=== PATIENT | male | born 1945 | race Caucasian/White ===

== ENCOUNTER → 2016-06-18 | Day surgery (SDC) | payer MEDICARE, BC ==
[~2016-06-18] MED LIST: Lactated Ringers 1,000 ML IV SCH; Propofol 200 MG/20 ML SDV IV ONE
[2016-06-18 08:09] VITALS: BP 121/55
--- NOTE | 2016-06-18 08:56 | OR ---
DATE OF OPERATION: 06/18/2016 PREOPERATIVE DIAGNOSIS: SCREENING COLONOSCOPY. POSTOPERATIVE DIAGNOSIS: SCREENING COLONOSCOPY. SURGEON: Huey Salamanca MD PROCEDURE: FULL-LENGTH COLONOSCOPY. 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 COMPLICATIONS: None. SPECIMEN: None. FINDINGS: Normal full-length colonoscopy. RECOMMENDATIONS: Followup colonoscopy on an as-needed basis only. INDICATIONS: The patient was in to see his primary provider, Melissa Oneil for routine physical. She recommended a screening colonoscopy. It has been 10 years since his last. DESCRIPTION OF PROCEDURE: The patient was prepped and draped, placed in the left lateral decubitus position. A lubricated Olympus colonoscope was inserted and easily advanced to the cecum. Direct visualization of the ileocecal valve and the appendiceal orifice was accomplished. Bowel prep was excellent. Upon withdrawal of the scope throughout the entire length of the colon, I found no signs of any polyps, mass, ulceration, or bleeding sites. There were no vascular abnormalities or signs of colitis. The patient had no significant diverticular disease. The rectal vault was benign. Retroflexion of the scope in the rectum showed some perianal hemorrhoid disease, but otherwise benign. Air was then suctioned from the colon, and the scope was removed without complications. ANAYA/SHAE /[id number]
== END ==
LOC: CC.SDS 06:22
PROVIDERS: ATTEND Family Medicine
DX: Z12.11 Encounter for screening for malignant neoplasm of colon (principal); K64.8 Other hemorrhoids
CPT/HCPCS: G0121; J2704; J7120; 00810

== ENCOUNTER 2024-02-01 10:10 | Inpatient (IN) | payer MEDICARE, BC ==
[2024-02-01 10:36] LABS: BASOPHILS ABSOLUTE AUTO 0.03 10^3/uL (0.00-0.50); BASOPHILS PERCENT AUTO 0.2 % (0-1); EOSINOPHILS ABSOLUTE AUTO 0.01 10^3/uL (0.00-1.50); EOSINOPHILS PERCENT AUTO 0.1 % (0-6); HEMATOCRIT 38.8 % (42.0-52.0); HEMOGLOBIN 12.3 g/dL (14.0-18.0); IMMATURE GRAN ABSOLUTE AUTO 0.02 10^3/uL (0.00-0.49); IMMATURE GRAN PERCENT AUTO 0.1 % (0.0-4.9); LYMPHOCYTES PERCENT AUTO 10.1 % (24-44); MEAN CORPUSCULAR HEMOGLOBIN 29.6 pg (27.0-32.0); MEAN CORPUSCULAR HGB CONC 31.7 g/dL (32.0-36.0); MEAN CORPUSCULAR VOLUME 93.5 fL (83.0-97.0); MONOCYTES ABSOLUTE AUTO 1.73 10^3/uL (0.00-1.50); MONOCYTES PERCENT AUTO 9.7 % (0-10); NEUTROPHILS ABSOLUTE AUTO 14.24 x10^3/uL (1.80-8.00); NEUTROPHILS PERCENT AUTO 79.8 % (41-71); PLATELET COUNT,PLT 150 10^3/uL (150-400); RED BLOOD CELL COUNT 4.15 x10^6/uL (4.50-6.00); WHITE BLOOD CELL COUNT,WBC 17.8 10^3/uL (4.0-11.0)
[2024-02-01 10:48] LABS: ALBUMIN 3.2 g/dL (3.4-5.0); BILIRUBIN TOTAL 0.7 mg/dL (0.0-1.0); C-REACTIVE PROTEIN 1.36 mg/dL (<=0.50); CREATININE 1.4 mg/dL (0.7-1.3); EST CRCL DRUG DOSING (CG) 46.19 mL/min; POTASSIUM,K 4.2 mEq/L (3.5-5.0); PROTEIN TOTAL,TP 6.3 g/dL (6.4-8.2)
[2024-02-01] MEDS ORDERED: Ondansetron 4 MG Tab.DIS PO PRN (11:42)
[2024-02-01] MEDS ORDERED: Ondansetron 4 MG/2 ML SDV IV PRN (11:42)
[2024-02-01] MEDS: methylPREDNISolone Sodium Succinate 125 MG/2 ML SDV IVPUSH ONE (12:35)
[2024-02-01] MEDS: Sodium Chloride 0.9% 1,000 ML IV SCH (12:37)
[2024-02-01] MEDS: Enoxaparin 40 MG/0.4 ML Syringe SUBCUT SCH (16:23)
[2024-02-01] MEDS: Tamsulosin 0.4 MG Cap.ER PO SCH (19:39)
[2024-02-01] MEDS: methylPREDNISolone Sodium Succinate 125 MG/2 ML SDV IVPUSH SCH (19:41)
[2024-02-01] MEDS: Piperacillin/Tazobactam 4.5 GM in Sodium Chloride 0.9% 100 ML IV ONE (19:44)
[2024-02-01] MEDS: Albuterol/Ipratropium 3.0-0.5 MG/3 ML Neb Soln NEB PRN (19:54)
[2024-02-01] MEDS: Acetaminophen 325 MG Tab PO PRN (20:10)
[2024-02-01] MEDS: Nitroglycerin 0.4 MG Tab.SL SL PRN (20:53)
[2024-02-01 21:39] LABS: INR 1.04 (0.92-1.18); PROTHROMBIN TIME 10.9 SEC (9.3-11.3); PTT,PARTIAL THROMBOPLSTIN TIME 25.1 SEC (20.0-30.0)
[2024-02-01] MEDS: Heparin Sodium 5,000 Units/ML Vial IVPUSH ONE (22:15)
[2024-02-01] MEDS: Aspirin 81 MG Tab.Chew PO ONE (22:16)
[2024-02-01] MEDS: Metoprolol Tartrate 50 MG Tab PO ONE (22:18)
[2024-02-01] MEDS: Heparin Sodium/0.45% NaCl 500 ML IV SCH (22:22)
[2024-02-01 23:56] VITALS: BP 132/58; PULSE 74
[2024-02-02] MEDS ORDERED: Piperacillin/Tazobactam 4.5 GM in Sodium Chloride 0.9% 100 ML IV SCH
[2024-02-02] MEDS ORDERED: Finasteride 5 MG Tab PO SCH (08:00)
[2024-02-02] MEDS ORDERED: VIT B6 PO SCH ×2 (08:00)
[2024-02-02] MEDS ORDERED: Metoprolol Tartrate 50 MG Tab PO SCH (08:00)
[2024-02-02] MEDS ORDERED: FOLIC AC PO SCH ×2 (08:00)
[2024-02-02] MEDS ORDERED: CYANOCOBALAMIN PO SCH ×2 (08:00)
[2024-02-02] MEDS ORDERED: Aspirin 81 MG Tab.EC PO SCH (08:00)
[2024-02-02] MEDS ORDERED: [UNRECOGNIZED DRUG - OTHER] PO SCH (08:00)
[2024-02-02] MEDS ORDERED: Lactobacillus Rhamnosus GG (Probiotic) Cap PO SCH (08:00)
[2024-02-02] MEDS ORDERED: Beta-Carotene (Vitamin A) w/Vitamin C & E plus Minerals Tab PO SCH (08:00)
[2024-02-02] MEDS ORDERED: Ascorbic Acid 500 MG Tab PO SCH (08:00)
== END 2024-02-01 23:45 | DRG 193 ==
LOC: CC.ED 10:10 → CC.MS 11:15 → CC.ED 11:15 → UNDOADMIN 11:35 → CC.MS 11:35
PROVIDERS: ADMIT Physician Assistant Medical; ATTEND Physician Assistant Medical
DX: J18.9 Pneumonia, unspecified organism (principal); I21.4 Non-ST elevation (NSTEMI) myocardial infarction; J44.0 Chronic obstructive pulmonary disease with (acute) lower respiratory infection; N17.9 Acute kidney failure, unspecified; J44.9 Chronic obstructive pulmonary disease, unspecified; N40.0 Benign prostatic hyperplasia without lower urinary tract symptoms; D64.9 Anemia, unspecified; M19.90 Unspecified osteoarthritis, unspecified site; F41.9 Anxiety disorder, unspecified; I25.10 Atherosclerotic heart disease of native coronary artery without angina pectoris; I10 Essential (primary) hypertension; Z95.5 Presence of coronary angioplasty implant and graft; Z98.49 Cataract extraction status, unspecified eye; Z79.82 Long term (current) use of aspirin; Z79.52 Long term (current) use of systemic steroids; Z98.890 Other specified postprocedural states; Z91.041 Radiographic dye allergy status; Z79.899 Other long term (current) drug therapy
CPT/HCPCS: 36415; 70450; 71045; 80053; 83735; 84484; 85025; 85610; 85651; 85730; 86140; 87428-QW; 94640; 97161-GP; 99285; A9270-GY; J1644; J1650; J2543; J2919; J3490; J7030; J7620-GY

== ENCOUNTER 2024-04-08 10:05 | Inpatient (IN) | payer MEDICARE, BC ==
[2024-04-08] MEDS: Albuterol/Ipratropium 3.0-0.5 MG/3 ML Neb Soln NEB ONE (10:08)
[2024-04-08 10:27] LABS: BASOPHILS ABSOLUTE AUTO 0.02 10^3/uL (0.00-0.50); BASOPHILS PERCENT AUTO 0.2 % (0-1); EOSINOPHILS ABSOLUTE AUTO 0.09 10^3/uL (0.00-1.50); EOSINOPHILS PERCENT AUTO 0.9 % (0-6); HEMATOCRIT 36.3 % (42.0-52.0); HEMOGLOBIN 11.5 g/dL (14.0-18.0); IMMATURE GRAN ABSOLUTE AUTO 0.01 10^3/uL (0.00-0.49); IMMATURE GRAN PERCENT AUTO 0.1 % (0.0-4.9); LYMPHOCYTES ABSOLUTE AUTO 1.91 10^3/uL (0.60-5.00); LYMPHOCYTES PERCENT AUTO 19.9 % (24-44); MEAN CORPUSCULAR HEMOGLOBIN 29.6 pg (27.0-32.0); MEAN CORPUSCULAR HGB CONC 31.7 g/dL (32.0-36.0); MEAN CORPUSCULAR VOLUME 93.3 fL (83.0-97.0); MONOCYTES ABSOLUTE AUTO 0.92 10^3/uL (0.00-1.50); MONOCYTES PERCENT AUTO 9.6 % (0-10); NEUTROPHILS ABSOLUTE AUTO 6.67 x10^3/uL (1.80-8.00); NEUTROPHILS PERCENT AUTO 69.3 % (41-71); PLATELET COUNT,PLT 103 10^3/uL (150-400); RED BLOOD CELL COUNT 3.89 x10^6/uL (4.50-6.00); WHITE BLOOD CELL COUNT,WBC 9.6 10^3/uL (4.0-11.0)
[2024-04-08] MEDS: Acetaminophen 325 MG Tab PO ONE (10:29)
[2024-04-08 10:57] LABS: ALBUMIN 3.2 g/dL (3.4-5.0); BILIRUBIN TOTAL 0.5 mg/dL (0.0-1.0); CALCIUM 8.7 mg/dL (8.4-10.1); CREATININE 1.2 mg/dL (0.7-1.3); EST CRCL DRUG DOSING (CG) 50.69 mL/min; MAGNESIUM 1.5 mg/dL (1.8-2.4); PROTEIN TOTAL,TP 6.2 g/dL (6.4-8.2)
[2024-04-08 11:05] LABS: INR 0.99 (0.92-1.18); PROTHROMBIN TIME 10.4 SEC (9.3-11.3); PTT,PARTIAL THROMBOPLSTIN TIME 24.7 SEC (20.0-30.0)
[2024-04-08] MEDS: Magnesium Sulfate/Water Premix 2 GM in Premix Bag 1 BAG IV ONE (11:22)
[2024-04-08] MEDS: Azithromycin 250 MG Tab PO ONE (11:55)
[2024-04-08] MEDS: methylPREDNISolone Sodium Succinate 40 MG/1 ML SDV IVPUSH SCH (11:56)
[2024-04-08] MEDS: cefTRIAXone 1 GM Vial IVPUSH SCH (11:56)
[2024-04-08] MEDS ORDERED: Ondansetron 4 MG Tab.DIS PO PRN (12:37)
[2024-04-08] MEDS ORDERED: Polyethylene Glycol 3350 Powder 17 GM Packet PO PRN (12:37)
[2024-04-08] MEDS ORDERED: Ondansetron 4 MG/2 ML SDV IV PRN (12:37)
[2024-04-08] MEDS ORDERED: Albuterol 0.083% 2.5 MG/3 ML Neb Soln NEB PRN (12:37)
[2024-04-08] MEDS ORDERED: Docusate Sodium 100 MG Cap PO PRN (12:37)
[2024-04-08] MEDS ORDERED: Acetaminophen 325 MG Tab PO PRN (12:37)
[2024-04-08] MEDS ORDERED: Nitroglycerin 0.4 MG Tab.SL SL PRN (12:37)
[2024-04-08] MEDS ORDERED: Morphine 2 MG/ML SYRINGE IVPUSH PRN (12:37)
[2024-04-08] MEDS: Albuterol/Ipratropium 3.0-0.5 MG/3 ML Neb Soln NEB SCH (13:51)
[2024-04-08] MEDS: Oseltamivir 75 MG Cap PO SCH (15:11)
[2024-04-08] MEDS: Furosemide 20 MG Tab PO SCH (15:11)
[2024-04-08] MEDS: Metoprolol Tartrate 25 MG Tab PO SCH (19:31)
[2024-04-08] MEDS: atorvaSTATin 20 MG Tab PO SCH (19:31)
[2024-04-08] MEDS: Enoxaparin 40 MG/0.4 ML Syringe SUBCUT SCH (19:32)
[2024-04-08] MEDS: Formoterol/Mometasone 200-5 MCG 8.8 GM Inhaler IH SCH (21:03)
[2024-04-09 07:03] LABS: BASOPHILS ABSOLUTE AUTO 0.01 10^3/uL (0.00-0.50); BASOPHILS PERCENT AUTO 0.1 % (0-1); EOSINOPHILS ABSOLUTE AUTO 0.01 10^3/uL (0.00-1.50); EOSINOPHILS PERCENT AUTO 0.1 % (0-6); HEMATOCRIT 36.2 % (42.0-52.0); HEMOGLOBIN 11.5 g/dL (14.0-18.0); IMMATURE GRAN ABSOLUTE AUTO 0.02 10^3/uL (0.00-0.49); IMMATURE GRAN PERCENT AUTO 0.2 % (0.0-4.9); LYMPHOCYTES ABSOLUTE AUTO 1.84 10^3/uL (0.60-5.00); LYMPHOCYTES PERCENT AUTO 16.9 % (24-44); MEAN CORPUSCULAR HEMOGLOBIN 29.3 pg (27.0-32.0); MEAN CORPUSCULAR HGB CONC 31.8 g/dL (32.0-36.0); MEAN CORPUSCULAR VOLUME 92.1 fL (83.0-97.0); MONOCYTES ABSOLUTE AUTO 0.62 10^3/uL (0.00-1.50); MONOCYTES PERCENT AUTO 5.7 % (0-10); NEUTROPHILS ABSOLUTE AUTO 8.38 x10^3/uL (1.80-8.00); PLATELET COUNT,PLT 135 10^3/uL (150-400); RED BLOOD CELL COUNT 3.93 x10^6/uL (4.50-6.00); WHITE BLOOD CELL COUNT,WBC 10.9 10^3/uL (4.0-11.0)
[2024-04-09 07:09] LABS: CALCIUM 8.7 mg/dL (8.4-10.1); CREATININE 1.1 mg/dL (0.7-1.3); EST CRCL DRUG DOSING (CG) 55.3 mL/min; MAGNESIUM 1.8 mg/dL (1.8-2.4); POTASSIUM,K 4.1 mEq/L (3.5-5.0)
[2024-04-09] MEDS: Aspirin 81 MG Tab.EC PO SCH (07:30)
[2024-04-09] MEDS: Finasteride 5 MG Tab PO SCH (07:31)
[2024-04-09] MEDS: Beta-Carotene (Vitamin A) w/Vitamin C & E plus Minerals Tab PO SCH (07:31)
[2024-04-09] MEDS: Ascorbic Acid 500 MG Tab PO SCH (07:32)
[2024-04-09] MEDS: Cholecalciferol (Vitamin D3) 25 MCG Tab PO SCH (07:32)
[2024-04-09] MEDS: Calcium Carbonate 500 MG Tab.Chew PO SCH (07:32)
[2024-04-09] MEDS: Azithromycin 250 MG Tab PO SCH (07:32)
[2024-04-09] MEDS ORDERED: CYANOCOBALAMIN PO SCH (08:00)
[2024-04-09] MEDS ORDERED: [UNRECOGNIZED DRUG - OTHER] PO SCH (08:00)
[2024-04-09] MEDS ORDERED: FOLIC AC PO SCH (08:00)
[2024-04-09] MEDS ORDERED: VIT B6 PO SCH (08:00)
[2024-04-09] MEDS: CYANOCOBALAMIN PO SCH (10:44)
[2024-04-09] MEDS: FOLIC AC PO SCH (10:44)
[2024-04-09] MEDS: VIT B6 PO SCH (10:44)
[2024-04-10 07:43] LABS: BASOPHILS ABSOLUTE AUTO 0.01 10^3/uL (0.00-0.50); BASOPHILS PERCENT AUTO 0.1 % (0-1); EOSINOPHILS ABSOLUTE AUTO 0.01 10^3/uL (0.00-1.50); EOSINOPHILS PERCENT AUTO 0.1 % (0-6); HEMOGLOBIN 11.7 g/dL (14.0-18.0); IMMATURE GRAN ABSOLUTE AUTO 0.03 10^3/uL (0.00-0.49); IMMATURE GRAN PERCENT AUTO 0.2 % (0.0-4.9); LYMPHOCYTES ABSOLUTE AUTO 1.98 10^3/uL (0.60-5.00); LYMPHOCYTES PERCENT AUTO 15.2 % (24-44); MEAN CORPUSCULAR HEMOGLOBIN 29.5 pg (27.0-32.0); MEAN CORPUSCULAR HGB CONC 31.6 g/dL (32.0-36.0); MEAN CORPUSCULAR VOLUME 93.2 fL (83.0-97.0); MONOCYTES ABSOLUTE AUTO 1.22 10^3/uL (0.00-1.50); MONOCYTES PERCENT AUTO 9.3 % (0-10); NEUTROPHILS PERCENT AUTO 75.1 % (41-71); PLATELET COUNT,PLT 137 10^3/uL (150-400); RED BLOOD CELL COUNT 3.97 x10^6/uL (4.50-6.00); WHITE BLOOD CELL COUNT,WBC 13.1 10^3/uL (4.0-11.0)
[2024-04-10 08:50] LABS: CALCIUM 8.6 mg/dL (8.4-10.1); CREATININE 1.1 mg/dL (0.7-1.3); EST CRCL DRUG DOSING (CG) 55.3 mL/min; MAGNESIUM 1.7 mg/dL (1.8-2.4); POTASSIUM,K 4.2 mEq/L (3.5-5.0)
[2024-04-10 13:53] VITALS: BP 129/62; PULSE 82
== END 2024-04-10 12:45 | disposition home or self-care (01) | DRG 641 ==
LOC: CC.ED 10:05 → CC.MS 11:29 → UNDOADMIN 11:40
PROVIDERS: ADMIT Nurse Practitioner; ATTEND Nurse Practitioner
DX: E83.42 Hypomagnesemia (principal); J44.1 Chronic obstructive pulmonary disease with (acute) exacerbation; I25.10 Atherosclerotic heart disease of native coronary artery without angina pectoris; I10 Essential (primary) hypertension; N40.0 Benign prostatic hyperplasia without lower urinary tract symptoms; M19.90 Unspecified osteoarthritis, unspecified site; H26.9 Unspecified cataract; J30.9 Allergic rhinitis, unspecified; F41.9 Anxiety disorder, unspecified; J10.1 Influenza due to other identified influenza virus with other respiratory manifestations; T38.0X5A Adverse effect of glucocorticoids and synthetic analogues, initial encounter; Z98.49 Cataract extraction status, unspecified eye; Z95.5 Presence of coronary angioplasty implant and graft; Z98.890 Other specified postprocedural states; Z87.891 Personal history of nicotine dependence; Z91.041 Radiographic dye allergy status; Z79.82 Long term (current) use of aspirin; Z79.51 Long term (current) use of inhaled steroids; Z79.02 Long term (current) use of antithrombotics/antiplatelets; Z79.899 Other long term (current) drug therapy
CPT/HCPCS: 36415; 71046; 80053; 83690; 83735; 83880; 84484; 85025; 85610; 85730; 93005; 94640; 99285; A9270; J3475; 80048; 87428-QW; 93010; 97161-GP; 99223; 99233; 99238; J0696; J1650; J2919; J7620-GY

== ENCOUNTER 2024-05-27 11:15 | Emergency (ER) | payer MEDICARE, BC ==
[2024-05-27 11:41] LABS: BASOPHILS ABSOLUTE AUTO 0.04 10^3/uL (0.00-0.50); BASOPHILS PERCENT AUTO 0.4 % (0-1); EOSINOPHILS ABSOLUTE AUTO 0.12 10^3/uL (0.00-1.50); EOSINOPHILS PERCENT AUTO 1.2 % (0-6); HEMATOCRIT 34.9 % (42.0-52.0); HEMOGLOBIN 11.4 g/dL (14.0-18.0); IMMATURE GRAN ABSOLUTE AUTO 0.02 10^3/uL (0.00-0.49); IMMATURE GRAN PERCENT AUTO 0.2 % (0.0-4.9); LYMPHOCYTES ABSOLUTE AUTO 2.33 10^3/uL (0.60-5.00); LYMPHOCYTES PERCENT AUTO 22.6 % (24-44); MEAN CORPUSCULAR HEMOGLOBIN 30.2 pg (27.0-32.0); MEAN CORPUSCULAR HGB CONC 32.7 g/dL (32.0-36.0); MEAN CORPUSCULAR VOLUME 92.6 fL (83.0-97.0); MONOCYTES PERCENT AUTO 11.7 % (0-10); NEUTROPHILS ABSOLUTE AUTO 6.58 x10^3/uL (1.80-8.00); NEUTROPHILS PERCENT AUTO 63.9 % (41-71); PLATELET COUNT,PLT 112 10^3/uL (150-400); RED BLOOD CELL COUNT 3.77 x10^6/uL (4.50-6.00); WHITE BLOOD CELL COUNT,WBC 10.3 10^3/uL (4.0-11.0)
[2024-05-27 11:57] LABS: ALANINE AMINOTRANSFERASE,ALT 33 U/L (12-78); ALKALINE PHOSPHATASE 80 U/L (46-116); ASPARTATE AMNIOTRANSFERASE,AST 18 U/L (15-37); BILIRUBIN TOTAL 0.8 mg/dL (0.0-1.0); BLOOD UREA NITROGEN,BUN 21 mg/dL (7-18); CALCIUM 9.1 mg/dL (8.4-10.1); CARBON DIOXIDE,CO2 30 mmol/L (21-32); CHLORIDE,CL 105 mEq/L (98-106); CREATININE 1.1 mg/dL (0.7-1.3); GLUCOSE RANDOM 84 mg/dL (75-99); POTASSIUM,K 4.1 mEq/L (3.5-5.0); SODIUM,NA 143 mEq/L (136-145)
[2024-05-27 11:58] LABS: C-REACTIVE PROTEIN < 0.50 mg/dL (<=0.50); ESTIMATED GFR 68 mL/min (>=60)
[2024-05-27 15:44] VITALS: BP 112/62; PULSE 88
== END 2024-05-27 12:25 | disposition home or self-care (01) ==
LOC: CC.ED 11:15
DX: R42 Dizziness and giddiness (principal); I10 Essential (primary) hypertension; I25.10 Atherosclerotic heart disease of native coronary artery without angina pectoris; J44.9 Chronic obstructive pulmonary disease, unspecified; M19.90 Unspecified osteoarthritis, unspecified site; Z91.041 Radiographic dye allergy status; Z79.82 Long term (current) use of aspirin; Z79.899 Other long term (current) drug therapy
CPT/HCPCS: 36415; 71046; 80053; 84484; 85025; 86140; 93005; 99284

== ENCOUNTER 2024-06-29 20:08 | Inpatient (IN) | payer MEDICARE, BC ==
[2024-06-29 20:27] LABS: BASOPHILS ABSOLUTE AUTO 0.04 10^3/uL (0.00-0.50); BASOPHILS PERCENT AUTO 0.5 % (0-1); EOSINOPHILS ABSOLUTE AUTO 0.14 10^3/uL (0.00-1.50); EOSINOPHILS PERCENT AUTO 1.7 % (0-6); HEMATOCRIT 31.8 % (42.0-52.0); HEMOGLOBIN 10.4 g/dL (14.0-18.0); IMMATURE GRAN ABSOLUTE AUTO 0.02 10^3/uL (0.00-0.49); IMMATURE GRAN PERCENT AUTO 0.2 % (0.0-4.9); LYMPHOCYTES ABSOLUTE AUTO 1.68 10^3/uL (0.60-5.00); LYMPHOCYTES PERCENT AUTO 20.4 % (24-44); MEAN CORPUSCULAR HEMOGLOBIN 30.1 pg (27.0-32.0); MEAN CORPUSCULAR HGB CONC 32.7 g/dL (32.0-36.0); MEAN CORPUSCULAR VOLUME 92.2 fL (83.0-97.0); MONOCYTES ABSOLUTE AUTO 0.96 10^3/uL (0.00-1.50); MONOCYTES PERCENT AUTO 11.7 % (0-10); NEUTROPHILS ABSOLUTE AUTO 5.39 x10^3/uL (1.80-8.00); NEUTROPHILS PERCENT AUTO 65.5 % (41-71); PLATELET COUNT,PLT 151 10^3/uL (150-400); RED BLOOD CELL COUNT 3.45 x10^6/uL (4.50-6.00); WHITE BLOOD CELL COUNT,WBC 8.2 10^3/uL (4.0-11.0)
[2024-06-29 20:46] LABS: ALANINE AMINOTRANSFERASE,ALT 30 U/L (12-78); ALBUMIN 2.9 g/dL (3.4-5.0); ALKALINE PHOSPHATASE 81 U/L (46-116); ASPARTATE AMNIOTRANSFERASE,AST 21 U/L (15-37); BILIRUBIN TOTAL 0.8 mg/dL (0.0-1.0); BLOOD UREA NITROGEN,BUN 23 mg/dL (7-18); CALCIUM 8.9 mg/dL (8.4-10.1); CARBON DIOXIDE,CO2 25 mmol/L (21-32); CHLORIDE,CL 102 mEq/L (98-106); CREATININE 1.4 mg/dL (0.7-1.3); GLUCOSE RANDOM 111 mg/dL (75-99); MAGNESIUM 1.8 mg/dL (1.8-2.4); POTASSIUM,K 4.3 mEq/L (3.5-5.0); PRO B-TYPE NATRIUR PEPT,BNPPRO 4583 pg/mL (0-1000); PROTEIN TOTAL,TP 6.7 g/dL (6.4-8.2); SODIUM,NA 138 mEq/L (136-145)
[2024-06-29 20:47] LABS: ESTIMATED GFR 51 mL/min (>=60)
[2024-06-29 20:58] LABS: APPEARANCE,URINE CLEAR (CLEAR); BILIRUBIN,URINE SMALL (NEGATIVE); COLOR,URINE DARK YELLOW (YELLOW); GLUCOSE,URINE NEGATIVE (NEGATIVE); KETONES,URINE TRACE mg/dL (NEGATIVE); LEUKOCYTE ESTERASE,URINE NEGATIVE (NEGATIVE); NITRITE,URINE NEGATIVE (NEGATIVE); OCCULT BLOOD,URINE NEGATIVE (NEGATIVE); PROTEIN,URINE 100 mg/dL (NEGATIVE); UROBILINOGEN,URINE 0.2 EU/dL (0.2-1.0)
[2024-06-29 21:02] LABS: RBC,URINE NOT SEEN /HPF (0-5); WBC,URINE NOT SEEN /HPF (0-5)
[2024-06-29 21:03] LABS: BACTERIA,URINE RARE /HPF (NOT SEEN); EPITHELIAL CELLS,URINE RARE /HPF (NOT SEEN); MUCUS,URINE FEW /HPF (NOT SEEN)
[2024-06-29] MEDS ORDERED: Polyethylene Glycol 3350 Powder 17 GM Packet PO PRN (23:20)
[2024-06-29] MEDS ORDERED: Ondansetron 4 MG Tab.DIS PO PRN (23:20)
[2024-06-29] MEDS ORDERED: Docusate Sodium 100 MG Cap PO PRN (23:20)
[2024-06-29] MEDS: Acetaminophen 325 MG Tab PO PRN (23:30)
[2024-06-29] MEDS: Furosemide 20 MG/2 ML VIAL IVPUSH SCH (23:33)
[2024-06-29] MEDS ORDERED: Albuterol 6.7 GM Inhaler INH PRN (23:48)
[2024-06-30 07:17] LABS: CALCIUM 8.6 mg/dL (8.4-10.1); CREATININE 1.3 mg/dL (0.7-1.3); EST CRCL DRUG DOSING (CG) 45.32 mL/min; MAGNESIUM 1.9 mg/dL (1.8-2.4); POTASSIUM,K 3.5 mEq/L (3.5-5.0)
[2024-06-30 07:52] LABS: BASOPHILS ABSOLUTE AUTO 0.03 10^3/uL (0.00-0.50); BASOPHILS PERCENT AUTO 0.4 % (0-1); EOSINOPHILS ABSOLUTE AUTO 0.22 10^3/uL (0.00-1.50); HEMATOCRIT 30.5 % (42.0-52.0); HEMOGLOBIN 10.1 g/dL (14.0-18.0); IMMATURE GRAN ABSOLUTE AUTO 0.02 10^3/uL (0.00-0.49); IMMATURE GRAN PERCENT AUTO 0.3 % (0.0-4.9); LYMPHOCYTES ABSOLUTE AUTO 2.09 10^3/uL (0.60-5.00); LYMPHOCYTES PERCENT AUTO 28.1 % (24-44); MEAN CORPUSCULAR HEMOGLOBIN 30.8 pg (27.0-32.0); MEAN CORPUSCULAR HGB CONC 33.1 g/dL (32.0-36.0); MONOCYTES ABSOLUTE AUTO 0.94 10^3/uL (0.00-1.50); MONOCYTES PERCENT AUTO 12.6 % (0-10); NEUTROPHILS ABSOLUTE AUTO 4.15 x10^3/uL (1.80-8.00); NEUTROPHILS PERCENT AUTO 55.6 % (41-71); PLATELET COUNT,PLT 152 10^3/uL (150-400); RED BLOOD CELL COUNT 3.28 x10^6/uL (4.50-6.00); WHITE BLOOD CELL COUNT,WBC 7.5 10^3/uL (4.0-11.0)
[2024-06-30] MEDS: Beta-Carotene (Vitamin A) w/Vitamin C & E plus Minerals Tab PO SCH (07:57)
[2024-06-30] MEDS: Finasteride 5 MG Tab PO SCH (07:58)
[2024-06-30] MEDS: Cholecalciferol (Vitamin D3) 25 MCG Tab PO SCH (07:58)
[2024-06-30] MEDS: Aspirin 81 MG Tab.EC PO SCH (07:58)
[2024-06-30] MEDS: Metoprolol Tartrate 25 MG Tab PO SCH (07:58)
[2024-06-30] MEDS: Calcium Carbonate 500 MG Tab.Chew PO SCH (07:58)
[2024-06-30] MEDS: Potassium Chloride 10 MEQ Tab.ER PO SCH (07:58)
[2024-06-30] MEDS: Tamsulosin 0.4 MG Cap.ER PO SCH (07:58)
[2024-06-30] MEDS: Ascorbic Acid 500 MG Tab PO SCH (07:58)
[2024-06-30] MEDS ORDERED: Non-Formulary Medication 1 Each (Lutein/Minerals/Vit A,C & E [Ocuvite] 1 EACH Tablet) PO SCH (08:00)
[2024-06-30] MEDS ORDERED: Formoterol/Mometasone 200-5 MCG 8.8 GM Inhaler IH SCH (08:00)
[2024-06-30] MEDS: Ticagrelor 90 MG Tab PO SCH (08:44)
[2024-06-30] MEDS: Vitamin B Complex Cap PO SCH (10:59)
[2024-06-30] MEDS ORDERED: Enoxaparin 40 MG/0.4 ML Syringe SUBCUT SCH (11:00)
[2024-06-30] MEDS: VIT B6 PO SCH (11:12)
[2024-06-30] MEDS: FOLIC AC PO SCH (11:12)
[2024-06-30] MEDS: CYANOCOBALAMIN PO SCH (11:12)
[2024-06-30] MEDS: [UNRECOGNIZED DRUG - OTHER] PO SCH (11:12)
[2024-06-30] MEDS ORDERED: Albuterol 6.7 GM Inhaler INH PRN (11:27)
[2024-06-30] MEDS: FLUTICASONE PROPION INH SCH (11:48)
[2024-06-30] MEDS: SALMETEROL INH SCH (11:48)
[2024-06-30 12:07] LABS: CORONAVIRUS COVID-19 NAA NEGATIVE (NEGATIVE); INFLUENZA A NAA NEGATIVE (NEGATIVE); INFLUENZA B NAA NEGATIVE (NEGATIVE)
[2024-06-30] MEDS: Azithromycin 250 MG Tab PO ONE (12:23)
[2024-06-30] MEDS: cefTRIAXone 1 GM Vial IVPUSH SCH (12:35)
[2024-06-30] MEDS: Enoxaparin 40 MG/0.4 ML Syringe SUBCUT SCH (19:40)
[2024-06-30] MEDS: atorvaSTATin 20 MG Tab PO SCH (19:40)
[2024-07-01 07:13] LABS: C-REACTIVE PROTEIN 11.18 mg/dL (<=0.50); CALCIUM 8.3 mg/dL (8.4-10.1); CREATININE 1.2 mg/dL (0.7-1.3); EST CRCL DRUG DOSING (CG) 49.1 mL/min; MAGNESIUM 1.7 mg/dL (1.8-2.4); POTASSIUM,K 3.7 mEq/L (3.5-5.0)
[2024-07-01 07:22] LABS: BASOPHILS ABSOLUTE AUTO 0.04 10^3/uL (0.00-0.50); BASOPHILS PERCENT AUTO 0.6 % (0-1); EOSINOPHILS ABSOLUTE AUTO 0.22 10^3/uL (0.00-1.50); EOSINOPHILS PERCENT AUTO 3.1 % (0-6); HEMATOCRIT 28.8 % (42.0-52.0); HEMOGLOBIN 9.6 g/dL (14.0-18.0); IMMATURE GRAN ABSOLUTE AUTO 0.02 10^3/uL (0.00-0.49); IMMATURE GRAN PERCENT AUTO 0.3 % (0.0-4.9); MEAN CORPUSCULAR HEMOGLOBIN 30.5 pg (27.0-32.0); MEAN CORPUSCULAR HGB CONC 33.3 g/dL (32.0-36.0); MEAN CORPUSCULAR VOLUME 91.4 fL (83.0-97.0); MONOCYTES ABSOLUTE AUTO 0.78 10^3/uL (0.00-1.50); NEUTROPHILS ABSOLUTE AUTO 4.81 x10^3/uL (1.80-8.00); PLATELET COUNT,PLT 165 10^3/uL (150-400); RED BLOOD CELL COUNT 3.15 x10^6/uL (4.50-6.00); WHITE BLOOD CELL COUNT,WBC 7.1 10^3/uL (4.0-11.0)
[2024-07-01] MEDS: Azithromycin 250 MG Tab PO SCH (07:30)
[2024-07-02 10:15] LABS: BASOPHILS ABSOLUTE AUTO 0.03 10^3/uL (0.00-0.50); BASOPHILS PERCENT AUTO 0.3 % (0-1); EOSINOPHILS ABSOLUTE AUTO 0.18 10^3/uL (0.00-1.50); HEMATOCRIT 31.3 % (42.0-52.0); HEMOGLOBIN 10.2 g/dL (14.0-18.0); IMMATURE GRAN ABSOLUTE AUTO 0.02 10^3/uL (0.00-0.49); IMMATURE GRAN PERCENT AUTO 0.2 % (0.0-4.9); LYMPHOCYTES ABSOLUTE AUTO 1.43 10^3/uL (0.60-5.00); MEAN CORPUSCULAR HEMOGLOBIN 30.4 pg (27.0-32.0); MEAN CORPUSCULAR HGB CONC 32.6 g/dL (32.0-36.0); MEAN CORPUSCULAR VOLUME 93.2 fL (83.0-97.0); MONOCYTES ABSOLUTE AUTO 1.01 10^3/uL (0.00-1.50); MONOCYTES PERCENT AUTO 11.3 % (0-10); NEUTROPHILS ABSOLUTE AUTO 6.27 x10^3/uL (1.80-8.00); NEUTROPHILS PERCENT AUTO 70.2 % (41-71); PLATELET COUNT,PLT 189 10^3/uL (150-400); RED BLOOD CELL COUNT 3.36 x10^6/uL (4.50-6.00); WHITE BLOOD CELL COUNT,WBC 8.9 10^3/uL (4.0-11.0)
[2024-07-02 10:23] LABS: CALCIUM 8.9 mg/dL (8.4-10.1); CREATININE 1.3 mg/dL (0.7-1.3); EST CRCL DRUG DOSING (CG) 45.32 mL/min; MAGNESIUM 1.8 mg/dL (1.8-2.4); POTASSIUM,K 3.6 mEq/L (3.5-5.0)
[2024-07-02] MEDS: Glucagon,Human Recombinant 1 MG Vial IVPUSH ONE (13:07)
[2024-07-02] MEDS: Albuterol/Ipratropium 3.0-0.5 MG/3 ML Neb Soln NEB PRN (13:15)
[2024-07-02] MEDS: Albuterol/Ipratropium 3.0-0.5 MG/3 ML Neb Soln ONE (13:29)
[2024-07-02 13:38] LABS: BASOPHILS ABSOLUTE AUTO 0.07 10^3/uL (0.00-0.50); BASOPHILS PERCENT AUTO 0.5 % (0-1); EOSINOPHILS ABSOLUTE AUTO 0.34 10^3/uL (0.00-1.50); EOSINOPHILS PERCENT AUTO 2.6 % (0-6); HEMATOCRIT 35.5 % (42.0-52.0); HEMOGLOBIN 11.5 g/dL (14.0-18.0); IMMATURE GRAN ABSOLUTE AUTO 0.04 10^3/uL (0.00-0.49); IMMATURE GRAN PERCENT AUTO 0.3 % (0.0-4.9); LYMPHOCYTES ABSOLUTE AUTO 2.88 10^3/uL (0.60-5.00); LYMPHOCYTES PERCENT AUTO 21.9 % (24-44); MEAN CORPUSCULAR HEMOGLOBIN 30.2 pg (27.0-32.0); MEAN CORPUSCULAR HGB CONC 32.4 g/dL (32.0-36.0); MEAN CORPUSCULAR VOLUME 93.2 fL (83.0-97.0); MONOCYTES ABSOLUTE AUTO 1.52 10^3/uL (0.00-1.50); MONOCYTES PERCENT AUTO 11.5 % (0-10); NEUTROPHILS ABSOLUTE AUTO 8.32 x10^3/uL (1.80-8.00); NEUTROPHILS PERCENT AUTO 63.2 % (41-71); PLATELET COUNT,PLT 249 10^3/uL (150-400); RED BLOOD CELL COUNT 3.81 x10^6/uL (4.50-6.00); WHITE BLOOD CELL COUNT,WBC 13.2 10^3/uL (4.0-11.0)
[2024-07-02] MEDS: methylPREDNISolone Sodium Succinate 40 MG/1 ML SDV IVPUSH ONE (13:38)
[2024-07-02] MEDS: diphenhydrAMINE 50 MG/ML SDV IVPUSH ONE (13:41)
[2024-07-02 13:46] LABS: INR 1.02 (0.92-1.18); PROTHROMBIN TIME 10.6 SEC (9.3-11.3)
[2024-07-02] MEDS: 50% Dextrose in Water 50 ML Syringe IVPUSH ONE (13:50)
[2024-07-02 13:56] LABS: ALBUMIN 2.8 g/dL (3.4-5.0); BILIRUBIN TOTAL 0.6 mg/dL (0.0-1.0); CALCIUM 9.3 mg/dL (8.4-10.1); CREATININE 1.6 mg/dL (0.7-1.3); EST CRCL DRUG DOSING (CG) 36.82 mL/min; MAGNESIUM 1.7 mg/dL (1.8-2.4); POTASSIUM,K 3.9 mEq/L (3.5-5.0); PROTEIN TOTAL,TP 7.2 g/dL (6.4-8.2)
[2024-07-02] MEDS: Iopamidol 755 Mg/ML 100 ML Bottle IVPUSH ONE (14:07)
[2024-07-02] MEDS: Piperacillin/Tazobactam 4.5 GM in Sodium Chloride 0.9% 100 ML IV ONE (14:23)
[2024-07-02] MEDS: Sodium Chloride 0.9% 500 ML IV SCH (15:09)
[2024-07-02] MEDS: VANCOmycin 1.5 GM/300 ML 1.5 GM in Premix Bag 1 BAG IV ONE (15:13)
[2024-07-02] MEDS: Piperacillin/Tazobactam 4.5 GM in Sodium Chloride 0.9% 100 ML IV SCH (18:34)
[2024-07-03] MEDS: Furosemide 20 MG Tab PO SCH (08:04)
[2024-07-03 09:28] LABS: BASOPHILS ABSOLUTE AUTO 0.02 10^3/uL (0.00-0.50); BASOPHILS PERCENT AUTO 0.3 % (0-1); EOSINOPHILS ABSOLUTE AUTO 0.01 10^3/uL (0.00-1.50); EOSINOPHILS PERCENT AUTO 0.2 % (0-6); HEMATOCRIT 28.3 % (42.0-52.0); HEMOGLOBIN 9.3 g/dL (14.0-18.0); IMMATURE GRAN ABSOLUTE AUTO 0.02 10^3/uL (0.00-0.49); IMMATURE GRAN PERCENT AUTO 0.3 % (0.0-4.9); LYMPHOCYTES ABSOLUTE AUTO 1.49 10^3/uL (0.60-5.00); LYMPHOCYTES PERCENT AUTO 23.4 % (24-44); MEAN CORPUSCULAR HEMOGLOBIN 30.3 pg (27.0-32.0); MEAN CORPUSCULAR HGB CONC 32.9 g/dL (32.0-36.0); MEAN CORPUSCULAR VOLUME 92.2 fL (83.0-97.0); MONOCYTES ABSOLUTE AUTO 0.68 10^3/uL (0.00-1.50); MONOCYTES PERCENT AUTO 10.7 % (0-10); NEUTROPHILS ABSOLUTE AUTO 4.16 x10^3/uL (1.80-8.00); NEUTROPHILS PERCENT AUTO 65.1 % (41-71); PLATELET COUNT,PLT 218 10^3/uL (150-400); RED BLOOD CELL COUNT 3.07 x10^6/uL (4.50-6.00); WHITE BLOOD CELL COUNT,WBC 6.4 10^3/uL (4.0-11.0)
[2024-07-03 09:31] LABS: CALCIUM 8.6 mg/dL (8.4-10.1); CREATININE 1.3 mg/dL (0.7-1.3); EST CRCL DRUG DOSING (CG) 45.32 mL/min; MAGNESIUM 1.9 mg/dL (1.8-2.4); POTASSIUM,K 3.6 mEq/L (3.5-5.0)
[2024-07-03] MEDS: VANCOmycin 1.25 GM/250 ML 1.25 GM in Premix Bag 1 BAG IV ONE (10:03)
[2024-07-03] MEDS: Azithromycin 250 MG Tab PO SCH (12:54)
[2024-07-04 07:39] LABS: BASOPHILS ABSOLUTE AUTO 0.04 10^3/uL (0.00-0.50); BASOPHILS PERCENT AUTO 0.6 % (0-1); EOSINOPHILS ABSOLUTE AUTO 0.22 10^3/uL (0.00-1.50); HEMATOCRIT 28.3 % (42.0-52.0); HEMOGLOBIN 9.2 g/dL (14.0-18.0); IMMATURE GRAN ABSOLUTE AUTO 0.02 10^3/uL (0.00-0.49); IMMATURE GRAN PERCENT AUTO 0.3 % (0.0-4.9); LYMPHOCYTES ABSOLUTE AUTO 1.54 10^3/uL (0.60-5.00); LYMPHOCYTES PERCENT AUTO 21.3 % (24-44); MEAN CORPUSCULAR HEMOGLOBIN 30.1 pg (27.0-32.0); MEAN CORPUSCULAR HGB CONC 32.5 g/dL (32.0-36.0); MEAN CORPUSCULAR VOLUME 92.5 fL (83.0-97.0); MONOCYTES ABSOLUTE AUTO 0.72 10^3/uL (0.00-1.50); NEUTROPHILS ABSOLUTE AUTO 4.69 x10^3/uL (1.80-8.00); NEUTROPHILS PERCENT AUTO 64.8 % (41-71); PLATELET COUNT,PLT 201 10^3/uL (150-400); RED BLOOD CELL COUNT 3.06 x10^6/uL (4.50-6.00); WHITE BLOOD CELL COUNT,WBC 7.2 10^3/uL (4.0-11.0)
[2024-07-04 07:48] LABS: CALCIUM 8.4 mg/dL (8.4-10.1); CREATININE 1.3 mg/dL (0.7-1.3); EST CRCL DRUG DOSING (CG) 45.32 mL/min; MAGNESIUM 1.6 mg/dL (1.8-2.4); POTASSIUM,K 3.4 mEq/L (3.5-5.0)
[2024-07-04] MEDS: VANCOmycin 1.25 GM/250 ML 1.25 GM in Premix Bag 1 BAG IV SCH (08:20)
[2024-07-04 13:26] LABS: TSH ULTRASENSITIVE 1.2 uIU/mL (0.36-5.60)
[2024-07-04] MEDS: Magnesium Sulf/Wat 2 GM/50 mL 2 GM in Premix Bag 1 BAG IV ONE (13:57)
[2024-07-04] MEDS: Doxycycline Monohydrate 100 MG Cap PO SCH (13:59)
[2024-07-04 15:31] LABS: APPEARANCE,URINE CLEAR (CLEAR); BILIRUBIN,URINE NEGATIVE (NEGATIVE); GLUCOSE,URINE NEGATIVE (NEGATIVE); KETONES,URINE NEGATIVE (NEGATIVE); LEUKOCYTE ESTERASE,URINE NEGATIVE (NEGATIVE); NITRITE,URINE NEGATIVE (NEGATIVE); OCCULT BLOOD,URINE NEGATIVE (NEGATIVE); PROTEIN,URINE NEGATIVE (NEGATIVE); UROBILINOGEN,URINE 0.2 EU/dL (0.2-1.0)
[2024-07-04 15:32] LABS: COLOR,URINE LIGHT YELLOW (YELLOW)
[2024-07-04] MEDS ORDERED: Loperamide 2 MG Cap PO PRN (16:45)
[2024-07-04 21:56] LABS: BORDETELLA PARAPERT IS1001 Not Detected (Not Detected)
[2024-07-04] MEDS: Pantoprazole 40 MG Vial IVPUSH SCH (22:06)
[2024-07-05 07:24] LABS: CALCIUM 8.9 mg/dL (8.4-10.1); CREATININE 1.3 mg/dL (0.7-1.3); EST CRCL DRUG DOSING (CG) 45.32 mL/min; MAGNESIUM 1.8 mg/dL (1.8-2.4); POTASSIUM,K 3.6 mEq/L (3.5-5.0)
[2024-07-05 07:42] LABS: BASOPHILS ABSOLUTE AUTO 0.05 10^3/uL (0.00-0.50); BASOPHILS PERCENT AUTO 0.5 % (0-1); EOSINOPHILS ABSOLUTE AUTO 0.33 10^3/uL (0.00-1.50); EOSINOPHILS PERCENT AUTO 3.5 % (0-6); HEMOGLOBIN 10.3 g/dL (14.0-18.0); IMMATURE GRAN ABSOLUTE AUTO 0.03 10^3/uL (0.00-0.49); IMMATURE GRAN PERCENT AUTO 0.3 % (0.0-4.9); LYMPHOCYTES ABSOLUTE AUTO 2.52 10^3/uL (0.60-5.00); LYMPHOCYTES PERCENT AUTO 26.7 % (24-44); MEAN CORPUSCULAR HGB CONC 32.2 g/dL (32.0-36.0); MEAN CORPUSCULAR VOLUME 93.3 fL (83.0-97.0); MONOCYTES ABSOLUTE AUTO 0.86 10^3/uL (0.00-1.50); MONOCYTES PERCENT AUTO 9.1 % (0-10); NEUTROPHILS ABSOLUTE AUTO 5.64 x10^3/uL (1.80-8.00); NEUTROPHILS PERCENT AUTO 59.9 % (41-71); PLATELET COUNT,PLT 270 10^3/uL (150-400); RED BLOOD CELL COUNT 3.43 x10^6/uL (4.50-6.00); WHITE BLOOD CELL COUNT,WBC 9.4 10^3/uL (4.0-11.0)
[2024-07-05 11:08] VITALS: BP 127/56; PULSE 68
== END 2024-07-05 11:00 | disposition swing bed (61) | DRG 291 ==
LOC: CC.ED 20:08 → INTOOBSV 21:45 → CC.ED 21:45 → UNDOADMOB 21:45 → CC.MS 21:45 → OBSVTOIN 21:45 → CC.MS 06-30 12:42 → OBSVTOIN 06-30 12:42
PROVIDERS: ADMIT Nurse Practitioner; ATTEND Physician Assistant Medical
DX: I11.0 Hypertensive heart disease with heart failure (principal); J18.9 Pneumonia, unspecified organism; J44.0 Chronic obstructive pulmonary disease with (acute) lower respiratory infection; I50.9 Heart failure, unspecified; I25.10 Atherosclerotic heart disease of native coronary artery without angina pectoris; M19.90 Unspecified osteoarthritis, unspecified site; Z91.041 Radiographic dye allergy status; Z79.82 Long term (current) use of aspirin; Z79.51 Long term (current) use of inhaled steroids; Z79.899 Other long term (current) drug therapy; Z79.02 Long term (current) use of antithrombotics/antiplatelets; Z79.1 Long term (current) use of non-steroidal anti-inflammatories (NSAID); Z98.49 Cataract extraction status, unspecified eye; Z95.5 Presence of coronary angioplasty implant and graft; Z98.890 Other specified postprocedural states
CPT/HCPCS: 0240U; 36415; 70450; 71045; 71275; 74175; 80048; 80053; 80202; 81001; 81003; 82947; 83605; 83735; 83880; 84443; 84484; 85025; 85610; 85651; 85730; 86140; 86308; 87040; 87070; 87428-QW; 87486; 87581; 87633; 87798; 93005; 93010; 94640; 96374; 96375; 96376; 97161-GP; 99223; 99232; 99233; 99239; 99285; A9270-GY; G0378; J0696; J1200; J1610; J1650; J1940; J2470; J2543; J2919; J3372; J3475; J7040; Q9967

== ENCOUNTER 2024-07-05 09:48 | Inpatient (IN) | payer MEDICARE, BC ==
[2024-07-05] MEDS ORDERED: Polyethylene Glycol 3350 Powder 17 GM Packet PO PRN (13:22)
[2024-07-05] MEDS ORDERED: Docusate Sodium 100 MG Cap PO PRN (13:22)
[2024-07-05] MEDS ORDERED: Albuterol/Ipratropium 3.0-0.5 MG/3 ML Neb Soln NEB PRN (13:22)
[2024-07-05] MEDS ORDERED: Ondansetron 4 MG Tab.DIS PO PRN (13:22)
[2024-07-05] MEDS: Acetaminophen 325 MG Tab PO PRN (14:27)
[2024-07-05] MEDS: Doxycycline Monohydrate 100 MG Cap PO SCH (20:49)
[2024-07-05] MEDS: Metoprolol Tartrate 25 MG Tab PO SCH (20:49)
[2024-07-05] MEDS: atorvaSTATin 20 MG Tab PO SCH (20:50)
[2024-07-05] MEDS: Ticagrelor 90 MG Tab PO SCH (20:50)
[2024-07-05] MEDS: Formoterol/Mometasone 200-5 MCG 8.8 GM Inhaler INH SCH (20:51)
[2024-07-05] MEDS: Enoxaparin 40 MG/0.4 ML Syringe SUBCUT SCH (20:52)
[2024-07-06] MEDS: Pantoprazole 40 MG Tab.CR PO SCH (06:03)
[2024-07-06] MEDS: Furosemide 20 MG Tab PO SCH (08:20)
[2024-07-06] MEDS: Calcium Carbonate 500 MG Tab.Chew PO SCH (08:20)
[2024-07-06] MEDS: Ascorbic Acid 500 MG Tab PO SCH (08:20)
[2024-07-06] MEDS: Beta-Carotene (Vitamin A) w/Vitamin C & E plus Minerals Tab PO SCH (08:20)
[2024-07-06] MEDS: Aspirin 81 MG Tab.EC PO SCH (08:21)
[2024-07-06] MEDS: Tamsulosin 0.4 MG Cap.ER PO SCH (08:21)
[2024-07-06] MEDS: Cholecalciferol (Vitamin D3) 25 MCG Tab PO SCH (08:21)
[2024-07-06] MEDS: Finasteride 5 MG Tab PO SCH (08:21)
[2024-07-06] MEDS: Potassium Chloride 10 MEQ Tab.ER PO SCH (08:21)
[2024-07-06] MEDS: Vitamin B Complex Cap PO SCH (08:21)
[2024-07-06 08:22] VITALS: PULSE 77
[2024-07-06] MEDS: Loperamide 2 MG Cap PO PRN (09:32)
[2024-07-06 18:06] VITALS: BP 132/58
== END 2024-07-06 18:43 | DRG 948 ==
LOC: CC.MS 09:48 → UNDOADMIN 11:38
PROVIDERS: ADMIT Physician Assistant Medical; ATTEND Physician Assistant Medical
DX: R53.1 Weakness (principal); I50.9 Heart failure, unspecified; Z79.52 Long term (current) use of systemic steroids; Z79.82 Long term (current) use of aspirin; Z79.899 Other long term (current) drug therapy
CPT/HCPCS: 82947; 97110-GP; A9270-GY; J1650

== ENCOUNTER 2024-09-18 07:15 | Inpatient (IN) | payer MEDICARE, BC ==
[2024-09-18] MEDS: Magnesium Sulfate 2 GM/50 mL 2 GM in Premix Bag 1 BAG IV ONE (07:32)
[2024-09-18] MEDS: Budesonide 0.5 MG/2 ML Neb Susp NEB ONE (07:33)
[2024-09-18] MEDS: methylPREDNISolone Sodium Succinate 125 MG/2 ML SDV ONE (07:33)
[2024-09-18 07:43] LABS: BASOPHILS ABSOLUTE AUTO 0.07 10^3/uL (0.00-0.50); BASOPHILS PERCENT AUTO 0.5 % (0-1); EOSINOPHILS ABSOLUTE AUTO 0.03 10^3/uL (0.00-1.50); EOSINOPHILS PERCENT AUTO 0.2 % (0-6); IMMATURE GRAN ABSOLUTE AUTO 0.04 10^3/uL (0.00-0.49); IMMATURE GRAN PERCENT AUTO 0.3 % (0.0-4.9); LYMPHOCYTES ABSOLUTE AUTO 6.07 10^3/uL (0.60-5.00); LYMPHOCYTES PERCENT AUTO 45.8 % (24-44); MONOCYTES ABSOLUTE AUTO 0.67 10^3/uL (0.00-1.50); MONOCYTES PERCENT AUTO 5.1 % (0-10); NEUTROPHILS ABSOLUTE AUTO 6.38 x10^3/uL (1.80-8.00); NEUTROPHILS PERCENT AUTO 48.1 % (41-71); PLATELET COUNT,PLT 145 10^3/uL (150-400); RED BLOOD CELL COUNT 3.78 x10^6/uL (4.50-6.00); WHITE BLOOD CELL COUNT,WBC 13.3 10^3/uL (4.0-11.0)
[2024-09-18] MEDS: Furosemide 40 MG/4 ML VIAL IVPUSH ONE (07:46)
[2024-09-18 08:05] LABS: ALANINE AMINOTRANSFERASE,ALT 33 U/L (12-78); ASPARTATE AMNIOTRANSFERASE,AST 14 U/L (15-37); BILIRUBIN TOTAL 0.4 mg/dL (0.0-1.0); BLOOD UREA NITROGEN,BUN 26 mg/dL (7-18); CARBON DIOXIDE,CO2 29 mmol/L (21-32); CHLORIDE,CL 111 mEq/L (98-106); CREATININE 1.3 mg/dL (0.7-1.3); GLUCOSE RANDOM 127 mg/dL (75-99); POTASSIUM,K 4.3 mEq/L (3.5-5.0); PROTEIN TOTAL,TP 5.8 g/dL (6.4-8.2); SODIUM,NA 147 mEq/L (136-145)
[2024-09-18] MEDS ORDERED: Sodium Chloride 0.9% Inhalation Soln 3 ML Neb INH PRN (08:06)
[2024-09-18 08:08] LABS: ESTIMATED GFR 56 mL/min (>=60)
[2024-09-18] MEDS ORDERED: Ondansetron 4 MG/2 ML SDV IV PRN (10:10)
[2024-09-18] MEDS ORDERED: Sodium Chloride 0.9% 10 ML Syringe FLUSH PRN (10:10)
[2024-09-18] MEDS ORDERED: Ondansetron 4 MG Tab.DIS PO PRN (10:10)
[2024-09-18] MEDS ORDERED: Nitroglycerin 0.4 MG Tab.SL SL PRN (10:10)
[2024-09-18] MEDS: Cholecalciferol (Vitamin D3) 25 MCG Tab PO SCH (11:37)
[2024-09-18] MEDS: Potassium Chloride 10 MEQ Tab.ER PO ONE (11:37)
[2024-09-18] MEDS: Oxyquinoline/Emollient 0.3% Oint 4 OZ Canister TOP PRN (19:32)
[2024-09-18] MEDS: Formoterol/Mometasone 200-5 MCG 8.8 GM Inhaler INH SCH (19:33)
[2024-09-18] MEDS: Beta-Carotene (Vitamin A) w/Vitamin C & E plus Minerals Tab PO SCH (19:33)
[2024-09-18] MEDS: methylPREDNISolone Sodium Succinate 125 MG/2 ML SDV IVPUSH SCH (19:34)
[2024-09-18] MEDS: Vitamin B Complex Cap PO SCH (19:34)
[2024-09-19 07:28] LABS: BASOPHILS ABSOLUTE AUTO 0.01 10^3/uL (0.00-0.50); BASOPHILS PERCENT AUTO 0.1 % (0-1); EOSINOPHILS ABSOLUTE AUTO 0.00 10^3/uL (0.00-1.50); EOSINOPHILS PERCENT AUTO 0.0 % (0-6); IMMATURE GRAN ABSOLUTE AUTO 0.11 10^3/uL (0.00-0.49); IMMATURE GRAN PERCENT AUTO 0.6 % (0.0-4.9); LYMPHOCYTES ABSOLUTE AUTO 3.45 10^3/uL (0.60-5.00); LYMPHOCYTES PERCENT AUTO 20.3 % (24-44); MONOCYTES ABSOLUTE AUTO 1.31 10^3/uL (0.00-1.50); MONOCYTES PERCENT AUTO 7.7 % (0-10); NEUTROPHILS ABSOLUTE AUTO 12.12 x10^3/uL (1.80-8.00); NEUTROPHILS PERCENT AUTO 71.3 % (41-71); PLATELET COUNT,PLT 122 10^3/uL (150-400); RED BLOOD CELL COUNT 3.18 x10^6/uL (4.50-6.00); WHITE BLOOD CELL COUNT,WBC 17.0 10^3/uL (4.0-11.0)
[2024-09-19] MEDS: Potassium Chloride 10 MEQ Tab.ER PO SCH (07:31)
[2024-09-19 07:58] LABS: ALANINE AMINOTRANSFERASE,ALT 29.0 U/L (12-78); ASPARTATE AMNIOTRANSFERASE,AST 19.0 U/L (15-37); BILIRUBIN TOTAL 0.4 mg/dL (0.0-1.0); BLOOD UREA NITROGEN,BUN 30.0 mg/dL (7-18); CARBON DIOXIDE,CO2 28.0 mmol/L (21-32); CHLORIDE,CL 110.0 mEq/L (98-106); CREATININE 1.3 mg/dL (0.7-1.3); EST CRCL DRUG DOSING (CG) 43.85 mL/min; GLUCOSE RANDOM 137.0 mg/dL (75-99); POTASSIUM,K 4.5 mEq/L (3.5-5.0); PROTEIN TOTAL,TP 5.6 g/dL (6.4-8.2); SODIUM,NA 144.0 mEq/L (136-145)
[2024-09-19 08:02] LABS: ESTIMATED GFR 56.0 mL/min (>=60)
[2024-09-19] MEDS ORDERED: Albuterol 0.083% 2.5 MG/3 ML Neb Soln NEB PRN (08:26)
[2024-09-20 07:27] LABS: ALANINE AMINOTRANSFERASE,ALT 38.0 U/L (12-78); ASPARTATE AMNIOTRANSFERASE,AST 22.0 U/L (15-37); BILIRUBIN TOTAL 0.6 mg/dL (0.0-1.0); BLOOD UREA NITROGEN,BUN 33.0 mg/dL (7-18); CARBON DIOXIDE,CO2 26.0 mmol/L (21-32); CHLORIDE,CL 108.0 mEq/L (98-106); CREATININE 1.4 mg/dL (0.7-1.3); EST CRCL DRUG DOSING (CG) 40.71 mL/min; GLUCOSE RANDOM 99.0 mg/dL (75-99); POTASSIUM,K 4.8 mEq/L (3.5-5.0); PROTEIN TOTAL,TP 6.4 g/dL (6.4-8.2); SODIUM,NA 144.0 mEq/L (136-145)
[2024-09-20 07:31] LABS: BASOPHILS ABSOLUTE AUTO 0.01 10^3/uL (0.00-0.50); BASOPHILS PERCENT AUTO 0.0 % (0-1); EOSINOPHILS ABSOLUTE AUTO 0.00 10^3/uL (0.00-1.50); EOSINOPHILS PERCENT AUTO 0.0 % (0-6); IMMATURE GRAN ABSOLUTE AUTO 0.18 10^3/uL (0.00-0.49); IMMATURE GRAN PERCENT AUTO 0.8 % (0.0-4.9); LYMPHOCYTES ABSOLUTE AUTO 7.03 10^3/uL (0.60-5.00); LYMPHOCYTES PERCENT AUTO 31.7 % (24-44); MONOCYTES ABSOLUTE AUTO 1.57 10^3/uL (0.00-1.50); MONOCYTES PERCENT AUTO 7.1 % (0-10); NEUTROPHILS ABSOLUTE AUTO 13.38 x10^3/uL (1.80-8.00); NEUTROPHILS PERCENT AUTO 60.4 % (41-71); PLATELET COUNT,PLT 185 10^3/uL (150-400); RED BLOOD CELL COUNT 3.40 x10^6/uL (4.50-6.00)
[2024-09-20 07:43] LABS: WHITE BLOOD CELL COUNT,WBC 22.2 10^3/uL (4.0-11.0)
[2024-09-20 07:52] LABS: ESTIMATED GFR 51.0 mL/min (>=60)
[2024-09-20 18:05] LABS: APPEARANCE,URINE CLEAR (CLEAR); GLUCOSE,URINE NEGATIVE (NEGATIVE); OCCULT BLOOD,URINE TRACE-INTACT (NEGATIVE)
[2024-09-21 07:27] VITALS: BP 176/88; PULSE 76
[2024-09-21 07:39] LABS: BASOPHILS ABSOLUTE AUTO 0.01 10^3/uL (0.00-0.50); BASOPHILS PERCENT AUTO 0.1 % (0-1); EOSINOPHILS ABSOLUTE AUTO 0.00 10^3/uL (0.00-1.50); EOSINOPHILS PERCENT AUTO 0.0 % (0-6); IMMATURE GRAN ABSOLUTE AUTO 0.16 10^3/uL (0.00-0.49); IMMATURE GRAN PERCENT AUTO 1.1 % (0.0-4.9); LYMPHOCYTES ABSOLUTE AUTO 4.62 10^3/uL (0.60-5.00); LYMPHOCYTES PERCENT AUTO 31.4 % (24-44); MONOCYTES ABSOLUTE AUTO 0.97 10^3/uL (0.00-1.50); MONOCYTES PERCENT AUTO 6.6 % (0-10); NEUTROPHILS ABSOLUTE AUTO 8.94 x10^3/uL (1.80-8.00); NEUTROPHILS PERCENT AUTO 60.8 % (41-71); PLATELET COUNT,PLT 156 10^3/uL (150-400); RED BLOOD CELL COUNT 3.21 x10^6/uL (4.50-6.00); WHITE BLOOD CELL COUNT,WBC 14.7 10^3/uL (4.0-11.0)
[2024-09-21 07:52] LABS: ALANINE AMINOTRANSFERASE,ALT 35.0 U/L (12-78); ASPARTATE AMNIOTRANSFERASE,AST 17.0 U/L (15-37); BILIRUBIN TOTAL 0.6 mg/dL (0.0-1.0); BLOOD UREA NITROGEN,BUN 36.0 mg/dL (7-18); CARBON DIOXIDE,CO2 28.0 mmol/L (21-32); CHLORIDE,CL 108.0 mEq/L (98-106); CREATININE 1.1 mg/dL (0.7-1.3); EST CRCL DRUG DOSING (CG) 51.82 mL/min; GLUCOSE RANDOM 108.0 mg/dL (75-99); POTASSIUM,K 4.5 mEq/L (3.5-5.0); PROTEIN TOTAL,TP 6.1 g/dL (6.4-8.2); SODIUM,NA 145.0 mEq/L (136-145)
[2024-09-21 07:56] LABS: ESTIMATED GFR 68.0 mL/min (>=60)
== END 2024-09-21 12:31 | disposition swing bed (61) | DRG 194 ==
LOC: CC.ED 07:15 → CC.MS 09:00 → UNDOADMIN 09:00 → CC.MS 09:40
PROVIDERS: ADMIT Physician Assistant Medical; ATTEND Physician Assistant Medical
DX: J18.9 Pneumonia, unspecified organism (principal); F03.94 Unspecified dementia, unspecified severity, with anxiety; J44.0 Chronic obstructive pulmonary disease with (acute) lower respiratory infection; J44.1 Chronic obstructive pulmonary disease with (acute) exacerbation; Z66 Do not resuscitate; J30.9 Allergic rhinitis, unspecified; I25.10 Atherosclerotic heart disease of native coronary artery without angina pectoris; I10 Essential (primary) hypertension; N40.0 Benign prostatic hyperplasia without lower urinary tract symptoms; J44.9 Chronic obstructive pulmonary disease, unspecified; E55.9 Vitamin D deficiency, unspecified; D64.9 Anemia, unspecified; Z98.49 Cataract extraction status, unspecified eye; Z98.890 Other specified postprocedural states; M19.90 Unspecified osteoarthritis, unspecified site; Z79.52 Long term (current) use of systemic steroids; Z91.041 Radiographic dye allergy status; Z95.5 Presence of coronary angioplasty implant and graft; Z79.82 Long term (current) use of aspirin; Z79.51 Long term (current) use of inhaled steroids; Z79.899 Other long term (current) drug therapy
CPT/HCPCS: 36415; 71045; 80053; 83605; 83735; 83880; 84484; 85025; 86140; 87040 ×2; 93005; 96365; 96366; 96375; 99285; A9270 ×4; J0696; J1938; J3475; 81001; 94640; 94761; 97161-GP; 99223; 99232; 99233; 99238; J1650; J2543; J2919; J3490; J7030

== ENCOUNTER 2024-09-21 12:53 | Inpatient (IN) | payer MEDICARE, BC ==
[2024-09-21] MEDS ORDERED: Ondansetron 4 MG/2 ML SDV IV PRN (13:33)
[2024-09-21] MEDS ORDERED: Nitroglycerin 0.4 MG Tab.SL SL PRN (13:33)
[2024-09-21] MEDS ORDERED: Albuterol 0.083% 2.5 MG/3 ML Neb Soln NEB PRN (13:33)
[2024-09-21] MEDS ORDERED: Sodium Chloride 0.9% 10 ML Syringe FLUSH PRN ×2 (13:33)
[2024-09-21] MEDS ORDERED: Ondansetron 4 MG Tab.DIS PO PRN (13:33)
[2024-09-21] MEDS: Oxyquinoline/Emollient 0.3% Oint 4 OZ Canister TOP PRN (17:04)
[2024-09-21] MEDS: Beta-Carotene (Vitamin A) w/Vitamin C & E plus Minerals Tab PO SCH (19:35)
[2024-09-21] MEDS: methylPREDNISolone Sodium Succinate 125 MG/2 ML SDV IVPUSH SCH (19:35)
[2024-09-21] MEDS: Vitamin B Complex Cap PO SCH (19:36)
[2024-09-21] MEDS: Formoterol/Mometasone 200-5 MCG 8.8 GM Inhaler INH SCH (19:46)
[2024-09-22] MEDS: Potassium Chloride 10 MEQ Tab.ER PO SCH (07:38)
[2024-09-22] MEDS: Cholecalciferol (Vitamin D3) 25 MCG Tab PO SCH (12:08)
[2024-09-24] MEDS: Amoxicillin/Clavulanate K 875-125 MG Tab PO SCH (17:54)
[2024-09-28 07:28] VITALS: BP 147/60; PULSE 81
== END 2024-09-28 10:30 | disposition home health service (06) | DRG 947 ==
LOC: UNDOADMIN 12:53 → CC.MS 12:53
PROVIDERS: ADMIT Nurse Practitioner; ATTEND Nurse Practitioner
DX: R53.81 Other malaise (principal); J18.9 Pneumonia, unspecified organism; D84.9 Immunodeficiency, unspecified; J44.0 Chronic obstructive pulmonary disease with (acute) lower respiratory infection; Z66 Do not resuscitate
CPT/HCPCS: 36415; 85651; 86140; 94640; 97110-GP; 97530-GP; A9270-GY; J1650; J2543; J2919; J7512